=== PATIENT | male | born 1990 | race Caucasian/White ===

== ENCOUNTER 2024-10-24 10:31 | Emergency (ER) | payer OTHER, SELFPAY ==
[2024-10-24 10:32] VITALS: BP 117/91; PULSE 81; RESP 23; TEMP 35.7; O2SAT 99; BMI 29.2
[2024-10-24] MEDS: HYDROmorphone 0.5 MG/0.5 ML INJ 1 MG IVP (10:34)
--- NOTE | 2024-10-24 10:34 | CT_ITS ---
WS: [id number] CT ABDOMEN PELVIS TECHNIQUE: Noncontrast CT of the abdomen and pelvis with coronal and sagittal reformatted images. CLINICAL INFORMATION: flank pain COMPARISON: None. DLP: 1183.[address] scans at [facility] use at least one of these dose optimization techniques: automated exposure control; mA and/or kV adjustment per patient size (includes targeted exams where dose is matched to clinical indication); or iterative reconstruction. FINDINGS: Normal appendix in the RIGHT lower quadrant. Bilateral small subcentimeter nonobstructing renal parenchymal and calyceal tip calculi. Tiny calculus in the bladder adjacent to the RIGHT UVJ which may have already passed. Recommend correlation for RIGHT flank pain. Bladder calculus measures approximately 2 mm. Mild dilatation RIGHT renal pelvis. No hydronephrosis in the LEFT kidney. A few incidental pelvic phleboliths. Lung bases are well aerated. Normal noncontrast liver and spleen. Small esophageal hiatal hernia. Normal gallbladder. Tiny fat-containing umbilical hernia. Noncontrast pancreas appears normal. Adrenal glands are normal. Normal caliber abdominal aorta. Normal sigmoid colon. A few colonic diverticuli. Small fat-containing RIGHT inguinal hernia. Mild annular bulging L4-L5 and L5-S1. Incidental benign bone islands in the bony pelvis. CT/CT kidney stone [id number] IMPRESSION: 1. 2 mm tiny calculus in the dorsal bladder adjacent to the RIGHT UVJ which ma y have already passed. Recommend correlation for RIGHT flank pain. Mild dilatat ion of the RIGHT renal pelvis. 2. Otherwise bilateral nonobstructing subcentimeter renal parenchymal and marta ceal calculi bilaterally. 3. Normal appendix. 4. No other acute findings. Notified Jose Juan Palacios DO at 10/24/2024 11:24 AM.
--- NOTE | 2024-10-24 10:38 | ED_ITS ---
HPI - Abdominal Pain 2 General: Chief Complaint: Abdominal Pain Stated Complaint: possible kidney stone Time Seen by Provider: 10/24/24 10:34 History of Present Illness: 34-year-old male presents emergency room complaining of right flank pain. Patient has a known history of kidney stones he says his feels like a kidney stone that he said in the past. 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 He received a gram of Tylenol for Zofran and 30 of Toradol and a single dose of Flomax he still complaining of severe right flank pain. He had not had any warning symptoms prior to this. No urinary tract symptoms no fever. He has previously had a cystoscopy no previous lithotripsy or stenting in relation to his stones. Associated Symptoms: Reports nausea; Denies chills, dysuria and fever(s) Related Data Previous Rx's ?Medication ?Instructions ?Recorded oxycodone-acetaminophen 10 mg-325 1 tab PO Q6H PRN lexie n #20 tabs 10/24/24 mg tablet (Percocet) promethazine 25 mg tablet 25 mg PO Q6H PRN nausea and 10/24/24 vomiting #20 tabs tamsulosin 0.4 mg capsule (Flomax) 0.4 mg PO DAILY #7 caps 10/24/24 Allergies Allergy/AdvReac Type Severity Reaction Status Date / Time No Known Allergies Allergy Verified 10/24/24 10:35 Review of Systems 2 Const: Denies: fever(s) or chills Card: Denies: chest pain Resp: Denies: dyspnea GI: Reports: abdominal pain and nausea : Reports: flank pain; Denies: dysuria, urinary frequency or urinary urgency Musc: Denies: neck pain or back pain Skin/Breast: Denies: rash PFSH ED 2 PFSH: Medical History (Updated 10/24/24 @ 16:29 by Jose Juan Palacios DO) Calculus of kidney Social History Smoking and tobacco/nicotine status: never used tobacco/nicotine Physical Exam 2 Const: GENERAL APPEARANCE: cooperative ORIENTATION/CONSCIOUSNESS: Yes awake, Yes oriented to person, Yes oriented to place and Yes oriented to time HENMT: COMMON NORMALS: normocephalic, atraumatic and hearing grossly normal bilaterally HEAD & SCALP: normocephalic and atraumatic Resp: COMMON NORMALS: normal respiratory effort, No retractions, No use of accessory muscles and clear to auscultation bilaterally AUSCULTATION: clear to auscultation bilaterally Cardio: COMMON NORMALS: regular rate, regular rhythm and No murmurs present (Cardio) RATE: regular rate RHYTHM: regular rhythm GI: COMMON NORMALS: Soft to palpation and No hepatosplenomegaly present A USCULTATION: Yes normoactive bowel sounds PALPATION: Yes Soft to palpation, No Tenderness to palpation present (GI), No Guarding due to palpation present (GI) and Yes No hepatosplenomegaly present : BLADDER/KIDNEY EXAM: Yes CVA tenderness Back/Pelvis: GENERAL BACK: Yes CVA tenderness CVA tenderness: right Neuro: SENSORIUM/ORIENTATION: Yes oriented to person, Yes oriented to place and Yes oriented to time Skin: COMMON NORMALS: no rashes or lesions noted GENERAL SKIN EXAM: no rashes or lesions noted Course 2 Vital Signs: Vital signs: Vital Signs Temperature 96.2 F L 10/24/24 10:32 Pulse Rate 89 10/24/24 12:30 Respiratory Rate 23 H 10/24/24 10:32 Blood Pressure 111/65 10/24/24 12:30 Pulse Oximetry 97 10/24/24 12:30 Oxygen Delivery Me thod Room Air 10/24/24 11:15 MDM - Abdominal Pain Medical Decision Making Right nephrolithiasis Stone appears to have may be already passed with time the CT was done at worst it was at the very verge of the UVJ. Pain is much improved. Will discharge home with Percocet tamsulosin promethazine. No sign infection on the urine we will have him strain his urine and set up for outpatient follow-up with urology clinic in [place]. Return if pain is uncontrolled Lab Data I reviewed the patient's lab results. 10/24/24 10:48 10/24/24 10:48 Labs/Radiology: Radiology Impressions Abdomen/Pelvis CT 10/24/24 10:34 IMPRESSION: 1. 2 mm tiny calculus in the dorsal bladder adjacent to the RIGHT UVJ which may have already passed. Recommend correlation for RIGHT flank pain. Mild dilatation of the RIGHT renal pelvis. 2. Otherwise bilateral nonobstructing subcentimeter renal parenchymal and calyceal calculi bilaterally. 3. Normal appendix. 4. No other acute findings. Notified Jose Juan Palacios DO at 10/24/2024 11:24 AM. Laboratory Results WBC 7.59 10^3/uL (3.29-11.43) 10/24/24 10:48 RBC 4.94 10^6/uL (3.85-5.65) 10/24/24 10:48 Hgb 15.20 g/dL (11.27-16.99) 10/24/24 10:48 Hct 44.0 % (37-53) 10/24/24 10:48 MCV 89.1 fl (82-101) 10/24/24 10:48 MCH 30.8 pg (27-33) 10/24/24 10:48 MCHC 34.5 g/dL (30-55) 10/24/24 10:48 RDW 11.9 % (12.1-15.1) L 10/24/24 10:48 Plt Count 247 10^3/cmm (157-399) 10/24/24 10:48 MPV 10.4 fL (7.4-10.4) 10/24/24 10:48 Neut % (Auto) 46.8 % 10/24/24 10:48 Lymph % (Auto) 40.2 % 10/24/24 10:[address] [place] % (Auto) 9.9 % 10/24/24 10:48 Eos % (Auto) 2.1 % 10/24/24 10:48 Baso % (Auto) 0.7 % 10/24/24 10:48 Neut # (Auto) 3.56 10^3/uL (1.8-7.7) 10/24/24 10:48 Lymph # (Auto) 3.1 10^3/uL (0.8-4.8) 10/24/24 10:48 [place] # (Auto) 0.8 10^3/uL (0.2-0.9) 10/24/24 10:48 Eos # (Auto) 0.2 10^3/uL (0.0-0.8) 10/24/24 10:48 Baso # (Auto) 0.1 10^3/uL (0.0-0.1) 10/24/24 10:48 Nucleated RBC % (auto) 0 % 10/24/24 10:48 Nucleated RBCs # 0.0 /100WBC 10/24/24 10:48 Sodium 136 mmol/L (136-145) 10/24/24 10:48 Potassium 3.4 mmol/L (3.5-5.1) L 10/24/24 10:48 Chloride 99 mmol/L (98-107) 10/24/24 10:48 Carbon Dioxide 20 mmol/L (22-29) L 10/24/24 10:48 Anion Gap 20.4 (5-19) H 10/24/24 10:48 BUN 10 mg/dL (6-20) 10/24/24 10:48 Creatinine 0.7 mg/dL (0.7-1.2) 10/24/24 10:48 GFR Calculation 129.9 mL/min (90-130) 10/24/24 10:48 Glucose 123 mg/dL (65-115) H 10/24/24 10:48 Calculated Osmolality 282 mOsm/kg (285-295) L 10/24/24 10:48 Calcium 9.2 mg/dL (8.5-10.5) 10/24/24 10:48 Total Bilirubin 1.2 mg/dL (0.15-1.2) 10/24/24 10:48 AST 17 U/L (0-40) 10/24/24 10:48 ALT 19 U/L (0-41) 10/24/24 10:48 Alkaline Phosphatase 79 U/L (40-130) 10/24/24 10:48 Total Protein 7.0 g/dL (6.6-8.7) 10/24/24 10:48 Albumin 4.6 g/dL (3.5-5.2) 10/24/24 10:48 Globulin 2.4 g/dL (1.3-4.6) 10/24/24 10:48 Urine Color Yellow (Yellow) 10/24/24 12:04 Urine Appearance Cloudy (CLEAR) A 10/24/24 12:04 Urine pH 8.5 (5-7) A 10/24/24 12:04 Ur Specific [place] 1.017 (1.005-1.030) 10/24/24 12:04 Urine Protein Trace (Negative) A 10/24/24 12:04 Urine Glucose (UA) Negative (Normal) 10/24/24 12:04 Urine Ketones Negative (Negative) 10/24/24 12:04 Urine Blood Negative (Negative) 10/24/24 12:04 Urine Nitrate Negative (Negative) 10/24/24 12:04 Urine Bilirubin Negative (Negative) 10/24/24 12:04 Urine Urobilinogen 0.2 mg/dL (Negative) 10/24/24 12:04 Ur Leukocyte Esterase Negative (Negative) 10/24/24 12:04 Urine RBC 3-5 /hpf (0-2) 10/24/24 12:04 Urine WBC 0-5 /hpf (0-5) 10/24/24 12:04 Ur Squamous Epith Cells 0-5 /hpf (0-5) 10/24/24 12:04 Amorphous Sediment Not Reportable 10/24/24 12:04 Urine Bacteria None seen /hpf (NONE) 10/24/24 12:04 Hyaline Casts 3.30 /lpf 10/24/24 12:04 All radiology interpretation(s) finalized by discharge Discharge Plan Discharge Patient Disposition: Home Clinical Impression: Calculus of kidney Condition: Stable Prescriptions: New tamsulosin [Flomax] 0.4 mg capsule 0.4 mg PO DAILY Qty: 7 0RF oxycodone-acetaminophen [Percocet] 10-325 mg tablet 1 tab PO Q6H PRN (Reason: pain) Qty: 20 0RF promethazine 25 mg tablet 25 mg PO Q6H PRN (Reason: nausea and vomiting) Qty: 20 0RF Discharge Orders: Discharge ED (Routine); Ordered 10/24/24 Ordered By: Jose Juan Palacios Discharge Diet: Usual diet Discharge Activity: Increase activity as tolerated Patient Instructions: Kidney Stones (ED), How to Strain Your Urine (ED), Opioid Safety, Pain Management, Patient Portal & Nick Instructions Activity Restrictions/Additional Instructions: Thank you for choosing [facility] for your healthcare needs today. It is very important that you follow up as instructed or that you return to the Emergency Department should you have concerns or if your condition changes or worsens in any way. Emergency department visits are focused on emergent conditions, in some cases you may require further evaluation on an outpatient basis. You were seen in the emergency room with a kidney stone. On the CT it appears that is likely about to pass or it has already passed. You are discharged home with Flomax recommended take 1 tablet daily for 7 days he also given pain medications and nausea medications to use as needed strain your urine to collect stone and have it analyzed in the lab. Follow-up with urology. (Please note that included in your discharge packet is information concerning opioid safety and pain management. This information is given to all patients were discharged from the ER regardless of their discharge diagnosis or the medicines they usually take or are prescribed.) Print Language: Macedonian Coding Level of Care Code ED Therapist Physical for Magdalene Vasquez
[2024-10-24 10:58] LABS: Hematocrit 44.0 % (37-53); Hemoglobin 15.20 g/dL (11.27-16.99); Mean Corpuscular HGB Conc 34.5 g/dL (30-55); Mean Corpuscular Hemoglobin 30.8 pg (27-33); Mean Corpuscular Volume 89.1 fl (82-101); Nucleated Red Blood Cells % 0 %; Platelet Count 247 10^3/cmm (157-399); Red Blood Count 4.94 10^6/uL (3.85-5.65); White Blood Count 7.59 10^3/uL (3.29-11.43)
[2024-10-24] MEDS: HYDROmorphone 0.5 MG/0.5 ML INJ IVP (11:03)
[2024-10-24] MEDS: diphenhydrAMINE 50 mg/mL SDV 1mL 25 MG IVP (11:05)
[2024-10-24 11:15] VITALS: BP 133/83; PULSE 68; O2SAT 99
[2024-10-24 11:21] LABS: Alanine Aminotransferase 19 U/L (0-41); Albumin Level 4.6 g/dL (3.5-5.2); Alkaline Phosphatase 79 U/L (40-130); Anion Gap 20.4 (5-19); Aspartate Amino Transferase 17 U/L (0-40); Blood Urea Nitrogen 10 mg/dL (6-20); Calcium 9.2 mg/dL (8.5-10.5); Carbon Dioxide 20 mmol/L (22-29); Chloride 99 mmol/L (98-107); Creatinine Clr Calc Pharmacy 176.8082; Globulin 2.4 g/dL (1.3-4.6); Glucose 123 mg/dL (65-115); Osmolality Calculated 282 mOsm/kg (285-295); Potassium 3.4 mmol/L (3.5-5.1); Sodium 136 mmol/L (136-145); Total Protein 7.0 g/dL (6.6-8.7)
[2024-10-24 12:16] LABS: Glucose Urine UA Negative (Normal); Nitrate Urine Negative (Negative); Specific Gravity, Urine 1.017 (1.005-1.030)
[2024-10-24 12:18] LABS: Add Urine Microscopic? YES
[2024-10-24 12:30] VITALS: BP 111/65; PULSE 89; O2SAT 97
--- NOTE | 2024-10-24 12:44 | DCPLANNER ---
faxed referral packet to [facility] and [address]
== END 2024-10-24 12:36 | disposition home or self-care (01) ==
PROVIDERS: Emergency Provider Family Medicine
DX: N20.0 Calculus of kidney (principal); Z87.442 Personal history of urinary calculi
CPT/HCPCS: 36415; 74176; 80053; 81001; 85025; 96361; 96374; 96375; 96376; 99285; J0780; J1171; J1200; J7030